=== PATIENT | female | born 1985 | race Caucasian/White ===

== ENCOUNTER 2018-05-21 13:27 | Emergency (ER) | payer SELFPAY ==
[~2018-05-21] VITALS: Ht 160 cm; Wt 77.8 kg
[~2018-05-21 13:27] MED LIST: IBUP-974 PO
--- NOTE | 2018-05-21 13:43 | NUR ---
PATIENT AMBULATED TO BED#5
[2018-05-21 13:54] VITALS: BP 128/72
[2018-05-21] MEDS ORDERED: NACL 0.9% 1,000 ML IV ONE (14:10)
--- NOTE | 2018-05-21 14:17 | NUR ---
US AT BEDSIDE
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
[2018-05-21] MEDS ORDERED: cefTRIAXone 1,000 MG VIAL ONE (14:35)
[2018-05-21 15:12] LABS: BASOPHILS % (AUTO) 0.3 % (0.0-2.0); EOSINOPHILS # (AUTO) 0.2 K/uL (0-0.4); EOSINOPHILS % (AUTO) 2.3 % (0.0-4.0); HEMATOCRIT 28.6 % (36-48); LYMPHOCYTES # (AUTO) 1.7 K/uL (2.5-16.5); MEAN CORPUSCULAR HEMOGLOBIN 21 pg (27-31); MEAN CORPUSCULAR HGB CONC 32 g/dL (33-37); MEAN CORPUSCULAR VOLUME 67.9 fL (80-94); MONOCYTES # (AUTO) 0.7 K/uL (0.8-1.0); MONOCYTES % (AUTO) 6.6 % (1.7-9.3); NEUTROPHILS # (AUTO) 7.7 K/uL (1.8-7.7); NEUTROPHILS % (AUTO) 74.8 % (42.2-75.2); PLATELET COUNT (AUTO) 325 K/uL (140-450); RED BLOOD CELL COUNT(AUTO) 4.21 MIL/uL (4.20-5.40); RED CELL DISTRIBUTION WIDTH 18.5 % (11.6-13.7); WHITE BLOOD COUNT (AUTO) 10.3 K/uL (4.8-10.8)
[2018-05-21 15:37] LABS: ANION GAP 10.3 (8-16); CARBON DIOXIDE 25.6 mmol/L (21-32); POTASSIUM 3.9 mmol/L (3.5-5.1)
[2018-05-21 15:42] LABS: TOTAL BILIRUBIN 0.2 mg/dL (0.0-1.0)
--- NOTE | 2018-05-21 16:00 | NUR ---
MOTHER SLEEPING, VSS. WILL CONTINUE TO MONITOR.
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
--- NOTE | 2018-05-21 17:00 | NUR ---
MOTHER UP TO RESTROOM. NURSE WATCHING BABY.
[2018-05-21] MEDS ORDERED: KETOROLAC 30 MG/ML VIAL IVP ONE (18:10)
--- NOTE | 2018-05-21 18:30 | NUR ---
PT ADMITED TO [facility] UNDER DR. PEREIRA. STILL AWAITING BED AND PHONE NUMBER TO GIVE REPORT.
--- NOTE | 2018-05-21 18:43 | NUR ---
MOTHER SLEEPING WITH BABY IN SAME GURNEY. VSS; WILL CONTINUE TO MONITOR.
--- NOTE | 2018-05-21 19:12 | NUR ---
ASSUMED CARE OF PT FROM MELANIA SANTANA
[2018-05-21 19:36] LABS: APPEARANCE,URINE SLIGHTLY BLOODY (CLEAR); BILIRUBIN,URINE NEGATIVE (NEGATIVE); BLOOD, URINE 3+ (NEGATIVE); COLOR,URINE SLIGHT BLOODY (YELLOW); LEUKOCYTE ESTERASE ,URINE 3+ (NEGATIVE); NITRITE, URINE NEGATIVE (NEGATIVE); UGLUCOSE NEGATIVE (NEGATIVE)
[2018-05-21 19:39] LABS: RBC,URINE 80-100 /HPF (0-5)
[2018-05-21 19:40] LABS: WBC,URINE TOO MANY TO COUNT /HPF (0-5)
--- NOTE | 2018-05-21 20:17 | NUR ---
Patient to be transferred to [facility] Is being transferred due to HIGHER LEVEL OF CARE. Receiving facility has accepting physician and available space. ER physician has signed transfer form. Patient or responsible constitution party has agreed to transfer and signed form. Patient belongings inventoried and will be sent with patient. Copy of nursing notes, lab reports, EKG, Physicians Orders and X-rays to be sent with patient. Report called to JASON POLLOCK RN at receiving facility. [facility] ambulance service has been called for transfer. ETA is 45.
[2018-05-21 20:40] VITALS: BP 124/70
--- NOTE | 2018-05-21 20:40 | NUR ---
[facility] ARRIVAL FOR TRANSPORT.
== END 2018-05-21 20:40 | disposition short-term general hospital (02) ==
LOC: MED 13:27
DX: O72.2 Delayed and secondary postpartum hemorrhage (principal); O86.20 Urinary tract infection following delivery, unspecified; Z37.9 Outcome of delivery, unspecified; Z79.1 Long term (current) use of non-steroidal anti-inflammatories (NSAID)
CPT/HCPCS: 36415; 76830; 80053; 81001; 81025; 85025; 87086; 87186; 96365; 96375; 99285; J0696; J1885; J7030; J7060; Q0092